=== PATIENT | male | born 1955 | race Two or more races ===

== ENCOUNTER 2020-09-01 16:33 | Inpatient (IN) | payer MEDICAID ==
[~2020-09-01] VITALS: Ht 182.9 cm; Wt 78.0 kg
[~2020-09-01 16:33] MED LIST: ACYC-114 PO; CARV3.122 PO; FURO20TA3 PO; LISI1TAB39 PO; METF500T17 PO
[2020-09-01] MEDS ORDERED: SODIUM CHLORIDE FLUSH 10ML SYR IVF ONE (17:00)
[2020-09-01 17:25] LABS: MEAN CORPUSCULAR HEMOGLOBIN 34.3 pg (27.5-34.5); MEAN CORPUSCULAR HGB CONC 33.5 g/dL (33.2-36.2); MEAN PLATELET VOLUME 9.7 fL (7.4-10.4); PLATELET COUNT 158 x10^3/uL (130-400); RED BLOOD COUNT 3.11 x10^6/uL (4.38-5.82); RED CELL DISTRIBUTION WIDTH 14.5 % (9.4-14.8)
[2020-09-01 17:27] LABS: MD YES
[2020-09-01 17:35] LABS: ALANINE AMINOTRANSFERASE 36 U/L (12-78); ALBUMIN 2.7 g/dL (3.4-5.0); ANION GAP 14 mmol/L (5-15); CALCIUM 8.6 mg/dL (8.5-10.1); CHLORIDE 94 mmol/L (98-107); CREATININE 8.69 mg/dL (0.7-1.3)
[2020-09-01 17:37] LABS: ALKALINE PHOSPHATASE 191 U/L (45-117); BILIRUBIN,TOTAL 0.7 mg/dL (0.2-1.0); TOTAL PROTEIN 7.4 g/dL (6.4-8.2)
--- NOTE | 2020-09-01 17:58 | NUR ---
FINANCIAL PROFESSIONAL: PT TO ROOM FROM LOBBY VIA W/C
[2020-09-01 18:02] LABS: BAND#(MANUAL) 3.13 x10^3/uL; BANDS%(MANUAL) 12 % (0-7); LYMPH#(MANUAL) 0.52 x10^3/uL (1-3.4); LYMPHS% (MANUAL) 2 % (22-44); MONOS#(MANUAL) 1.31 x10^3/uL (0.3-2.7); MONOS% (MANUAL) 5 % (2-9); SEG#(MANUAL) 21.14 x10^3/uL (1.8-6.8); SEGS% (MANUAL) 81 % (42-75)
[2020-09-01 18:03] LABS: <PLATELET ESTIMATE> ADEQUATE; <PLT MORPHOLOGY> NORMAL PLT MORPH
--- NOTE | 2020-09-01 18:12 | NUR ---
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 PT C/O WEAKNESS, CHILLS, AND NOT BEING ABLE TO EAT DUE TO NO APPETITE. PT HASN'T URINATE FOR 1 WEEK. PT DENIES VOMITING, SOB. PT HAS ABD PAIN ON LEFT ABD PAIN UPPER ND LOWER QUADRANT. PT RECEIVES DIALYSIS 3 DAYS A WEEK.
--- NOTE | 2020-09-01 18:24 | NUR ---
PT HAS DIALYSIS ACCESS PORT RIGHT CHEST.
[2020-09-01] MEDS ORDERED: SODIUM CHLORIDE 0.9% 1,000 ML IV ONE (18:30)
--- NOTE | 2020-09-01 18:51 | NUR ---
BEDSIDE REPORT RECEIVED FROM GHISLAINE MCKEON.
--- NOTE | 2020-09-01 19:02 | NUR ---
PT SITTING UPRIGHT ON GURNEY, FAMILY AT BEDSIDE. NAD, VSS. LAB AT BEDSIDE. PT DENIES ANY NEEDS AT THIS TIME. CALL LIGHT AND PERSONAL BELONGINGS WITHIN REACH.
[2020-09-01] MEDS ORDERED: OMNIPAQUE 350 MG/ML, 100ML BOTTLE ONE (19:55)
--- NOTE | 2020-09-01 20:10 | NUR ---
CAREER AGENT #[id number] PT INSTRUCTED ON PROCEDURE OF STRAIGHT CATH TO OBTAIN URINE SAMPLE. PT VERBALIZED UNDERSTANDING. STRAIGHT CATH PREFORMED USING STERILE TECHNIQUE, PT TOLERATED WELL. URINE SAMPLE WALKED TO LAB. PT SITTING UPRIGHT ON GUBRIANNA, TRINA, VSS. PT DENIES ANY ADDITIONAL NEEDS AT THIS TIME. CALL LIGHT AND PERSONAL BELONGINGS WITHIN REACH.
[2020-09-01 20:22] LABS: MICROSCOPIC AUTO
[2020-09-01] MEDS ORDERED: AZITHROMYCIN 500 MG TABLET PO ONE (20:30)
[2020-09-01] MEDS ORDERED: CEFTRIAXONE PMX 1GM/50ML 50 ML IV ONE (20:30)
[2020-09-01] MEDS ORDERED: CEFTRIAXONE PMX 1GM/50ML 50 ML ONE (20:56)
[2020-09-01] MEDS ORDERED: AZITHROMYCIN 250 MG TABLET ONE (20:56)
[2020-09-01] MEDS ORDERED: SODIUM CHLORIDE FLUSH 10ML SYR IVF PRN (21:00)
[2020-09-01] MEDS ORDERED: ACETAMINOPHEN 325 MG TABLET PO PRN (21:30)
[2020-09-01] MEDS ORDERED: MELATONIN 5 MG TABLET PO PRN (21:30)
[2020-09-01] MEDS ORDERED: BISACODYL 10 MG SUPP PR PRN (21:30)
[2020-09-01] MEDS ORDERED: ONDANSETRON ODT 4 MG PO PRN (21:30)
[2020-09-01] MEDS: CARVEDILOL 3.125 MG TABLET PO SCH (21:30)
[2020-09-01] MEDS ORDERED: POLYETHYLENE GLYCOL 17 GM PACKET PO PRN (21:30)
[2020-09-01] MEDS ORDERED: OXYcodone IR 5MG TABLET PO PRN (21:30)
[2020-09-01] MEDS ORDERED: HEPARIN 5,000 UNITS/ML, 1ML ONE (21:59)
[2020-09-01] MEDS ORDERED: CARVEDILOL 3.125 MG TABLET ONE (21:59)
[2020-09-01] MEDS: INSULIN LISPRO 100 UNITS/ML, PEN SQ-INSULIN SCH (22:45)
[2020-09-01] MEDS: ASCORBIC ACID 500 MG TABLET PO SCH (22:46)
[2020-09-01] MEDS: ACYCLOVIR 400 MG TABLET PO SCH (22:46)
[2020-09-01] MEDS: HEPARIN 5,000 UNITS/ML, 1ML SQ SCH (22:48)
--- NOTE | 2020-09-01 23:04 | NUR ---
PT MEDICATED PER EMAR. NAD, VSS. WILL CONTINUE TO MONITOR.
--- NOTE | 2020-09-01 23:24 | NUR ---
PT DAUGHTER WANTS TO BE NOTIFIED WHEN PT TRANSFERED UPSTAIRS. GREEK SPEAKING ONLY. JUAN DANIEL: [phone]
--- NOTE | 2020-09-01 23:25 | NUR ---
PT GETS DIALYSIS SUNDAY, SUNDAY, SUNDAY EVERY WEEK.
--- NOTE | 2020-09-01 23:26 | NUR ---
HOSPITAL BED ORDERED.
--- NOTE | 2020-09-02 00:03 | NUR ---
PT PLACED ON HOSPITAL BED. NAD, VSS. PT DENIES ANY NEEDS AT THIS TIME. CALL LIGHT AND PERSONAL BELOINGS WITHIN REACH.
--- NOTE | 2020-09-02 01:15 | NUR ---
PT SUPINE ON HOSPITAL BED SLEEPING. NAD, VSS. PT DENIES ANY NEEDS AT THIS TIME. CALL LIGHT AND PERSONAL BELOINGS WITHIN REACH.
--- NOTE | 2020-09-02 01:51 | NUR ---
PT UP TO BEDSIDE COMMODE FOR BM WITH THIS RN.
--- NOTE | 2020-09-02 02:30 | NUR ---
PT SUPINE ON HOSPITAL BED SLEEPING. NAD, VSS. PT DENIES ANY NEEDS AT THIS TIME. CALL LIGHT AND PERSONAL BELOINGS WITHIN REACH.
--- NOTE | 2020-09-02 03:00 | NUR ---
PT SUPINE ON HOSPITAL BED SLEEPING. NAD, VSS. PT DENIES ANY NEEDS AT THIS TIME. CALL LIGHT AND PERSONAL BELOINGS WITHIN REACH.
--- NOTE | 2020-09-02 04:12 | NUR ---
PT SUPINE ON HOSPITAL BED, SLEEPING. NAD, VSS. NO NEEDS AT THIS TIME. CALL LIGHT AND PERSONAL BELONGINGS WITHIN REACH.
--- NOTE | 2020-09-02 04:32 | NUR ---
CALL PLACED TO DR. SARAH VALLEJO PT BP 80'S OVER 50'S CONSISTENTLY. ODER TO HOLD BP MEDS IS SBP LESS THAN 100 AND VERBAL ORDER FOR 250 ML NS. "WE WILL CONTINUE TO MONITOR PT".
[2020-09-02] MEDS ORDERED: HEPARIN 5,000 UNITS/ML, 1ML ONE ×3 (04:51→20:49)
[2020-09-02] MEDS: HEPARIN 5,000 UNITS/ML, 1ML SQ SCH ×3 (04:54→21:34)
--- NOTE | 2020-09-02 04:54 | NUR ---
PT BP IMPROVED FOLLOWING 250 ML BOLUS, 93/58. NAD.
[2020-09-02] MEDS ORDERED: PEDS NS BOLUS IV.SOLN 20ML/KG IVBOLUS ONE (05:00)
[2020-09-02] MEDS ORDERED: SODIUM CHLORIDE 0.9%, 250ML IVBOLUS ONE ×2 (05:00)
--- NOTE | 2020-09-02 05:12 | NUR ---
PT SUPINE ON HOSPITAL BED, SLEEPING. NAD, BP CONTINUES TO IMPROVE. NO NEEDS AT THIS TIME. CALL LIGHT AND PERSONAL BELONGINGS WITHIN REACH. ISOLATION PRECAUTIONS IN PLACE.
[2020-09-02 05:30] LABS: ANION GAP 11 mmol/L (5-15); CALCIUM 7.9 mg/dL (8.5-10.1); CHLORIDE 101 mmol/L (98-107); CREATININE 8.87 mg/dL (0.7-1.3)
[2020-09-02 05:54] LABS: MEAN CORPUSCULAR HEMOGLOBIN 35.2 pg (27.5-34.5); MEAN CORPUSCULAR HGB CONC 34.4 g/dL (33.2-36.2); MEAN PLATELET VOLUME 9.8 fL (7.4-10.4); PLATELET COUNT 139 x10^3/uL (130-400); RED BLOOD COUNT 2.58 x10^6/uL (4.38-5.82); RED CELL DISTRIBUTION WIDTH 14.7 % (9.4-14.8)
--- NOTE | 2020-09-02 06:14 | NUR ---
CHIEF GREEN OFFICER #[id number] DISCUSSED PLAN OF CARE WITH PT. PT DENIES ANY COMPLAINTS AT THIS TIME, NO LIGHTHEADEDNESS, DIZZINESS. "I KIND OF JUST REALLY WANT TO SLEEP". PT UPRIGHT ON HOSPITAL BED. CALL LIGHT AND PERSONAL BELONGINGS WITHIN REACH. ISOLATION PRECAUTIONS IN PLACE.
[2020-09-02 06:24] LABS: MD YES
[2020-09-02 06:25] LABS: BAND#(MANUAL) 3.47 x10^3/uL; BANDS%(MANUAL) 13 % (0-7); LYMPH#(MANUAL) 1.34 x10^3/uL (1-3.4); LYMPHS% (MANUAL) 5 % (22-44); MONOS#(MANUAL) 2.14 x10^3/uL (0.3-2.7); MONOS% (MANUAL) 8 % (2-9); SEG#(MANUAL) 19.76 x10^3/uL (1.8-6.8); SEGS% (MANUAL) 74 % (42-75)
[2020-09-02 06:26] LABS: <PLATELET ESTIMATE> ADEQUATE; <PLT MORPHOLOGY> NORMAL PLT MORPH
--- NOTE | 2020-09-02 06:48 | NUR ---
REPORT GIVEN TO LISSETH MCKEON
--- NOTE | 2020-09-02 06:51 | NUR ---
PT REPORT FROM LINDA PENA. PT CARE TO BE ASSUMED. PER JEAN, PT'S DAUGHTER (JUAN DANIEL) REQUESTED NOTIFICATION OF WHEN PT IS MOVED TO [facility] FLOOR UNIT. DAUGHTER'S NUMBER IN CHART.
--- NOTE | 2020-09-02 07:05 | NUR ---
PT SLEEPING, RESP EVEN & UNLABORED, CARDIAC MONITORING CONTINUING: NSR. HUMALOG PEN ON ROOM COUNTER
--- NOTE | 2020-09-02 07:37 | NUR ---
FBS 108. PER INSTRUCTIONS: NO HUMALOG TO BE GIVEN.
[2020-09-02] MEDS: INSULIN LISPRO 100 UNITS/ML, PEN SQ-INSULIN SCH ×4 (07:40→21:00)
--- NOTE | 2020-09-02 07:59 | NUR ---
ORAL CARE PRODUCTS PROVIDED TO PT. PT AWAITING BREAKFAST TRAY
[2020-09-02] MEDS ORDERED: ASCORBIC ACID 500 MG TABLET ONE ×2 (08:01→16:53)
[2020-09-02] MEDS: ASCORBIC ACID 500 MG TABLET PO SCH ×2 (08:05→19:08)
[2020-09-02] MEDS ORDERED: SENNA/DOCUSATE TABLET ONE ×2 (08:58→09:19)
[2020-09-02] MEDS ORDERED: ZINC SULFATE 220 MG CAPSULE ONE (08:58)
[2020-09-02] MEDS ORDERED: LISINOPRIL 20 MG TABLET ONE (08:58)
[2020-09-02] MEDS ORDERED: CARVEDILOL 3.125 MG TABLET ONE ×2 (08:59→20:49)
[2020-09-02] MEDS ORDERED: FUROSEMIDE 20 MG TABLET ONE (08:59)
[2020-09-02] MEDS ORDERED: LISINOPRIL 20 MG TABLET PO SCH (09:00)
[2020-09-02] MEDS ORDERED: HYDROCHLOROTHIAZIDE 12.5 MG CAPSULE PO SCH (09:00)
[2020-09-02] MEDS ORDERED: ZINC SULFATE 220 MG CAPSULE PO SCH (09:00)
[2020-09-02] MEDS: FUROSEMIDE 20 MG TABLET PO SCH (09:08)
[2020-09-02] MEDS: ACYCLOVIR 400 MG TABLET PO SCH ×3 (09:11→20:53)
[2020-09-02] MEDS: CARVEDILOL 3.125 MG TABLET PO SCH ×2 (09:13→21:34)
[2020-09-02] MEDS: SENNA/DOCUSATE TABLET PO SCH (09:22)
--- NOTE | 2020-09-02 09:25 | NUR ---
PT MEDICATED PER EMAR
[2020-09-02] MEDS ORDERED: ARANESP 60 MCG/ML **ESRD SQ SCH (09:30)
--- NOTE | 2020-09-02 10:01 | NUR ---
CARROLL (DARBEPOETIN) ORDERED FROM PHARMACY
--- NOTE | 2020-09-02 10:30 | NUR ---
NS 250ML BOLUS COMPLETED.
--- NOTE | 2020-09-02 10:42 | NUR ---
SPOKE WITH DIALYSIS UNIT; OK TO GIVE CARROLL. PT SCHEDULED FOR DIALYSIS THIS AFTERNOON.
--- NOTE | 2020-09-02 10:57 | NUR ---
ARANESP GIVEN PER EMAR
--- NOTE | 2020-09-02 11:04 | NUR ---
JOEY, RADIOLOGY, CALLED RE: PENDING DIALYSIS CATH REMOVAL ORDER. PT TO BE NPO EFFECTIVE IMMEDIATELY. JOEY WILL CONSULT DOCTOR RE: PROCEDURE.
--- NOTE | 2020-09-02 11:18 | NUR ---
SPOKE W/ PT'S DAUGHTER AND GRANDSON IN WAITING ROOM. GRANDSON TRANSLATING; PT'S DAUGHTER GIBRALTARIAN SPEAKER. FAMILY UPDATED ON POC. INSTRUCTED GRANDSON TO CALL ED IF FAMILY OR PT NEEDS MORE INFORMATION. GRANDSON: MAURY KNAPP ( 05/05/2005)
[2020-09-02] MEDS ORDERED: VANCOMYCIN PER PHARMACY MC PRN (13:00)
--- NOTE | 2020-09-02 13:52 | NUR ---
FBS 129. PER INSTRUCTIONS, NO INSULIN FOR THIS READING
--- NOTE | 2020-09-02 13:56 | NUR ---
RESTING QUIETLY ON BED, WATCHING TV. INSULIN GIVEN PER EMAR. PT AWAITING HOSPITAL ROOM ASSIGNMENT AND DIALYSIS. MONITORING CONTINUING: NSR. CALL LIGHT W/IN REACH
--- NOTE | 2020-09-02 14:18 | NUR ---
CALL RECEIVED FROM REJI; DIALYSIS TO BE DONE IN ED.
--- NOTE | 2020-09-02 14:28 | NUR ---
FABRICE RECEIVED FROM PHARMACY. CALLED PHARMACY RE: INITIATION TIME VS PENDING DIALYSIS. VANCO MAY BE HUNG AFTER DIALYSIS.
[2020-09-02] MEDS ORDERED: VANCOMYCIN 1,500 MG in SODIUM CHLORIDE 0.9% 250 ML IV ONE (14:30)
[2020-09-02] MEDS ORDERED: PHARMACOKINETIC MONITORING MC PRN (14:30)
--- NOTE | 2020-09-02 14:49 | NUR ---
DIALYSIS TECHS AT BS
--- NOTE | 2020-09-02 15:12 | NUR ---
ZOVIRAX ORDERED FROM PHARMACY
--- NOTE | 2020-09-02 15:47 | NUR ---
DIALYSIS STILL AT BS
--- NOTE | 2020-09-02 16:07 | NUR ---
PT ENDORSED TO BREAK RN.
--- NOTE | 2020-09-02 16:44 | NUR ---
PT REPORT FROM LINDA COBURN. PER IRISH, IR WILL REMOVE DIALYSIS PORT TOMORROW. DIALYSIS STILL AT BS. PT CARE TO BE RESUMED.
--- NOTE | 2020-09-02 18:27 | NUR ---
DIALYSIS STILL AT BS
--- NOTE | 2020-09-02 18:43 | NUR ---
REPORT FROM LISSETH MCKEON, PT CARE TRANSFERRED AT THIS TIME.
--- NOTE | 2020-09-02 19:16 | NUR ---
PT DIALYSIS FINISHING UP AT THIS TIME. PHARMACY OKAY'D UMAIRO TO BE HUNG. PT MEDICATED PER NOV, MEDICATIONS LATE D/T DIALYSIS, PT NAD, RESTING ON HOSPITAL BED, APPEARS COMFORTABLE, NAD, VSS, DENIES ADDITIONAL QUESTIONS OR NEEDS AT THIS TIME. UMBRELLA SUPERVISOR SERVICES, LUCILA, USED TO REVIEW MEDICATIONS. WCTM. WAITING FOR ADMIT BED
[2020-09-02] MEDS ORDERED: AZITHROMYCIN 500 MG in SODIUM CHLORIDE 0.9% 250 ML IV SCH (20:00)
--- NOTE | 2020-09-02 20:27 | NUR ---
DIALYSIS REPORTED 1L PULLED OF PT, PT RESTING ON HOSPITAL BED, PROVIDED ONE MEAL PRIOR TO GOING NPO FOR DIALYSIS CATH REMOVAL TOMORROW. PT NAD, NO CHANGE IN CONDITION, WCTM.
[2020-09-02] MEDS ORDERED: CEFTRIAXONE PMX 1GM/50ML 50 ML ONE (20:49)
[2020-09-02] MEDS ORDERED: CEFTRIAXONE PMX 1GM/50ML 50 ML IV SCH (21:00)
--- NOTE | 2020-09-02 21:51 | NUR ---
PT MEDICATED PER NOV, , REPORT CALLED TO WENDIE MCKEON, PT TO BE TRANSFERRED MOMENTARILY. WCTM
--- NOTE | 2020-09-02 23:59 | NUR ---
pt nad, resting on hospital bed, appears comfortable, eyes closed, even and unlabored respirations. wctm. waiting for admit bed
--- NOTE | 2020-09-03 01:27 | NUR ---
PT RESTING ON HOSPITAL BED, NAD, APPEARS COMFORTABLE, LIGHTS OFF FOR COMFORT, NO CHANGE IN CONDITION, WCTM.
--- NOTE | 2020-09-03 02:39 | NUR ---
RN CALLED [facility], STATES ADMIT ORDER TO BE MED TELE D/T NEG COVID TEST. PT NAD, RESTING ON HOSPITAL BED, NO CHANGE IN CONDITION, WCTM. WAITING FOR ADMIT BED.
--- NOTE | 2020-09-03 03:54 | NUR ---
REPORT CALLED TO LARRY MCKEON, PT CARE TO BE TRANSFERRED UPON ARRIVAL TO THE FLOOR, NAD, NO CHANGE IN CONDITION, WCTM.
[2020-09-03 04:13] VITALS: BP 109/68
[2020-09-03] MEDS: HEPARIN 5,000 UNITS/ML, 1ML SQ SCH ×3 (04:46→20:58)
[2020-09-03 06:52] VITALS: BP 95/62
[2020-09-03] MEDS: INSULIN LISPRO 100 UNITS/ML, PEN SQ-INSULIN SCH ×4 (07:00→20:59)
[2020-09-03 07:34] LABS: ALBUMIN 2.2 g/dL (3.4-5.0); ANION GAP 12 mmol/L (5-15); CALCIUM 7.9 mg/dL (8.5-10.1); CHLORIDE 104 mmol/L (98-107); CREATININE 6.06 mg/dL (0.7-1.3); MEAN CORPUSCULAR HEMOGLOBIN 35.4 pg (27.5-34.5); MEAN CORPUSCULAR HGB CONC 34.4 g/dL (33.2-36.2); MEAN PLATELET VOLUME 9.7 fL (7.4-10.4); PLATELET COUNT 151 x10^3/uL (130-400); RED BLOOD COUNT 2.62 x10^6/uL (4.38-5.82); RED CELL DISTRIBUTION WIDTH 14.4 % (9.4-14.8)
[2020-09-03 07:36] LABS: VANCOMYCIN,RANDOM 32.2 mcg/mL
[2020-09-03 07:58] LABS: MD YES
[2020-09-03 07:59] LABS: <PLATELET ESTIMATE> ADEQUATE; <RBC MORPHOLOGY> NORMAL; BAND#(MANUAL) 1.25 x10^3/uL; BANDS%(MANUAL) 7 % (0-7); EOS#(MANUAL) 0.18 x10^3/uL (0.0-0.4); EOS% (MANUAL) 1 % (1-7); LYMPH#(MANUAL) 0.89 x10^3/uL (1-3.4); LYMPHS% (MANUAL) 5 % (22-44); MONOS% (MANUAL) 9 % (2-9); SEG#(MANUAL) 13.88 x10^3/uL (1.8-6.8); SEGS% (MANUAL) 78 % (42-75)
[2020-09-03 08:00] LABS: LARGE PLATELETS 1+
[2020-09-03] MEDS ORDERED: LIDOCAINE 1%, 10ML ONE (08:02)
[2020-09-03] MEDS ORDERED: FENTANYL PF 100 MCG/2ML ONE ×2 (08:03)
[2020-09-03] MEDS ORDERED: NALOXONE 1 MG/ML, 2ML ONE (08:03)
[2020-09-03] MEDS ORDERED: MIDAZOLAM 1 MG/ML, 5ML ONE (08:03)
[2020-09-03] MEDS ORDERED: FLUMAZENIL 0.1 MG/1 ML, 5ML ONE (08:03)
[2020-09-03] MEDS: ACYCLOVIR 400 MG TABLET PO SCH ×3 (09:00→20:58)
[2020-09-03] MEDS ORDERED: PHARMACY MAY ADJ FOR RENAL FX MC PRN (09:30)
[2020-09-03] MEDS: PIPERACILLIN/TAZO/PMX 2.25GM 50 ML IV SCH ×2 (11:44→17:10)
[2020-09-03] MEDS: FUROSEMIDE 20 MG TABLET PO SCH (11:45)
[2020-09-03] MEDS: SENNA/DOCUSATE TABLET PO SCH (11:46)
[2020-09-03] MEDS: CARVEDILOL 3.125 MG TABLET PO SCH ×2 (11:51→20:58)
[2020-09-03 12:31] VITALS: BP 125/71
[2020-09-03 19:07] VITALS: BP 109/63
[2020-09-04 00:15] VITALS: BP 90/53
[2020-09-04] MEDS: PIPERACILLIN/TAZO/PMX 2.25GM 50 ML IV SCH ×2 (01:01→08:54)
[2020-09-04] MEDS: HEPARIN 5,000 UNITS/ML, 1ML SQ SCH ×3 (04:21→21:53)
[2020-09-04 05:43] LABS: MEAN CORPUSCULAR HEMOGLOBIN 35.3 pg (27.5-34.5); MEAN CORPUSCULAR HGB CONC 34.3 g/dL (33.2-36.2); MEAN PLATELET VOLUME 9.6 fL (7.4-10.4); PLATELET COUNT 138 x10^3/uL (130-400); RED BLOOD COUNT 2.59 x10^6/uL (4.38-5.82); RED CELL DISTRIBUTION WIDTH 14.6 % (9.4-14.8)
[2020-09-04 05:47] LABS: ALBUMIN 2.2 g/dL (3.4-5.0); CALCIUM 7.5 mg/dL (8.5-10.1); CREATININE 7.73 mg/dL (0.7-1.3)
[2020-09-04 06:02] LABS: ANION GAP 10 mmol/L (5-15); CHLORIDE 104 mmol/L (98-107)
[2020-09-04 06:55] LABS: MD YES
[2020-09-04 06:57] LABS: BAND#(MANUAL) 0.33 x10^3/uL; BANDS%(MANUAL) 3 % (0-7); EOS#(MANUAL) 0.33 x10^3/uL (0.0-0.4); EOS% (MANUAL) 3 % (1-7); LYMPHS% (MANUAL) 22 % (22-44); MONOS#(MANUAL) 0.76 x10^3/uL (0.3-2.7); MONOS% (MANUAL) 7 % (2-9); SEG#(MANUAL) 7.09 x10^3/uL (1.8-6.8); SEGS% (MANUAL) 65 % (42-75)
[2020-09-04 06:58] LABS: <PLATELET ESTIMATE> ADEQUATE; <PLT MORPHOLOGY> NORMAL PLT MORPH
[2020-09-04] MEDS: INSULIN LISPRO 100 UNITS/ML, PEN SQ-INSULIN SCH ×4 (08:53→21:54)
[2020-09-04] MEDS: FUROSEMIDE 20 MG TABLET PO SCH (08:53)
[2020-09-04] MEDS: ACYCLOVIR 400 MG TABLET PO SCH ×3 (08:54→21:53)
[2020-09-04] MEDS: CARVEDILOL 3.125 MG TABLET PO SCH ×2 (08:54→21:52)
[2020-09-04] MEDS: SENNA/DOCUSATE TABLET PO SCH (08:54)
[2020-09-04 08:59] VITALS: BP 176/90
[2020-09-04] MEDS ORDERED: ENALAPRILAT 1.25 MG/ML, 1ML IV PRN (09:30)
[2020-09-04] MEDS ORDERED: LABETALOL 5MG/ML, 20ML IVPush PRN (09:30)
[2020-09-04 09:34] VITALS: BP 166/84
[2020-09-04 10:05] VITALS: BP 126/71
[2020-09-04 15:32] VITALS: BP 98/59
[2020-09-04] MEDS: CEFTRIAXONE PMX 2GM/50ML 50 ML IVPB SCH (15:36)
[2020-09-04 18:59] VITALS: BP 129/74
[2020-09-05 02:16] VITALS: BP 114/68
[2020-09-05 05:28] LABS: BASOPHILS % (AUTO) 0 % (0-1); EOSINOPHILS % (AUTO) 4 % (1-7); LYMPHOCYTES % (AUTO) 14 % (22-44); MEAN CORPUSCULAR HEMOGLOBIN 35.7 pg (27.5-34.5); MEAN CORPUSCULAR HGB CONC 34.2 g/dL (33.2-36.2); MEAN PLATELET VOLUME 9.2 fL (7.4-10.4); MONOCYTES % (AUTO) 8 % (2-9); NEUTROPHILS % (AUTO) 73 % (42-75); PLATELET COUNT 139 x10^3/uL (130-400); RED BLOOD COUNT 2.85 x10^6/uL (4.38-5.82); RED CELL DISTRIBUTION WIDTH 14.6 % (9.4-14.8)
[2020-09-05] MEDS: HEPARIN 5,000 UNITS/ML, 1ML SQ SCH ×3 (05:33→21:38)
[2020-09-05 05:34] LABS: ALANINE AMINOTRANSFERASE 40 U/L (12-78); ALBUMIN 2.2 g/dL (3.4-5.0); ANION GAP 14 mmol/L (5-15); CALCIUM 7.8 mg/dL (8.5-10.1); CHLORIDE 104 mmol/L (98-107); CREATININE 9.38 mg/dL (0.7-1.3)
[2020-09-05 05:37] LABS: ALKALINE PHOSPHATASE 275 U/L (45-117); BILIRUBIN,TOTAL 0.5 mg/dL (0.2-1.0); TOTAL PROTEIN 6.8 g/dL (6.4-8.2)
[2020-09-05 06:18] LABS: MD SCAN
[2020-09-05 06:45] VITALS: BP 133/82
[2020-09-05] MEDS: INSULIN LISPRO 100 UNITS/ML, PEN SQ-INSULIN SCH ×4 (07:00→21:38)
[2020-09-05] MEDS: FUROSEMIDE 20 MG TABLET PO SCH (08:52)
[2020-09-05] MEDS: SENNA/DOCUSATE TABLET PO SCH (08:52)
[2020-09-05] MEDS: CARVEDILOL 3.125 MG TABLET PO SCH ×2 (08:52→21:38)
[2020-09-05] MEDS: ACYCLOVIR 400 MG TABLET PO SCH ×3 (08:52→21:38)
[2020-09-05 12:35] VITALS: BP 145/77
[2020-09-05] MEDS: CEFTRIAXONE PMX 2GM/50ML 50 ML IVPB SCH (13:57)
[2020-09-05 19:46] VITALS: BP 156/81
[2020-09-06 01:23] VITALS: BP 108/65
[2020-09-06] MEDS: HEPARIN 5,000 UNITS/ML, 1ML SQ SCH ×2 (05:00→13:46)
[2020-09-06 05:31] LABS: MEAN CORPUSCULAR HEMOGLOBIN 35.4 pg (27.5-34.5); MEAN CORPUSCULAR HGB CONC 34.3 g/dL (33.2-36.2); MEAN PLATELET VOLUME 9.4 fL (7.4-10.4); PLATELET COUNT 146 x10^3/uL (130-400); RED BLOOD COUNT 2.52 x10^6/uL (4.38-5.82); RED CELL DISTRIBUTION WIDTH 14.6 % (9.4-14.8)
[2020-09-06 05:41] LABS: CHLORIDE 102 mmol/L (98-107)
[2020-09-06 05:47] LABS: ANION GAP 15 mmol/L (5-15); CALCIUM 7.2 mg/dL (8.5-10.1)
[2020-09-06 06:27] LABS: MD YES
[2020-09-06 06:29] LABS: <PLATELET ESTIMATE> ADEQUATE; <PLT MORPHOLOGY> NORMAL PLT MORPH; BAND#(MANUAL) 0.38 x10^3/uL; BANDS%(MANUAL) 4 % (0-7); EOS#(MANUAL) 0.38 x10^3/uL (0.0-0.4); EOS% (MANUAL) 4 % (1-7); LYMPH#(MANUAL) 1.63 x10^3/uL (1-3.4); LYMPHS% (MANUAL) 17 % (22-44); MONOS#(MANUAL) 0.48 x10^3/uL (0.3-2.7); MONOS% (MANUAL) 5 % (2-9); POLYCHROMASIA 1+; SEG#(MANUAL) 6.72 x10^3/uL (1.8-6.8); SEGS% (MANUAL) 70 % (42-75)
[2020-09-06] MEDS: INSULIN LISPRO 100 UNITS/ML, PEN SQ-INSULIN SCH ×2 (07:00→11:18)
[2020-09-06 07:12] VITALS: BP 147/82
[2020-09-06] MEDS: SENNA/DOCUSATE TABLET PO SCH (08:46)
[2020-09-06] MEDS: CARVEDILOL 3.125 MG TABLET PO SCH (08:46)
[2020-09-06] MEDS: ACYCLOVIR 400 MG TABLET PO SCH (08:46)
[2020-09-06] MEDS: FUROSEMIDE 20 MG TABLET PO SCH (08:47)
[2020-09-06] MEDS ORDERED: LIDOCAINE 1%, 20ML ONE (09:16)
[2020-09-06] MEDS ORDERED: MIDAZOLAM 1 MG/ML, 5ML ONE (09:37)
[2020-09-06] MEDS ORDERED: FENTANYL PF 100 MCG/2ML ONE ×2 (09:37)
[2020-09-06] MEDS ORDERED: FLUMAZENIL 0.1 MG/1 ML, 5ML ONE (09:37)
[2020-09-06] MEDS ORDERED: NALOXONE 1 MG/ML, 2ML ONE (09:37)
[2020-09-06] MEDS ORDERED: VISIPAQUE 270 MG/ML, 50ML BOTTLE ONE (10:42)
[2020-09-06] MEDS: CEFTRIAXONE PMX 2GM/50ML 50 ML IVPB SCH (11:50)
[2020-09-06] MEDS ORDERED: CEFA2PIG IV (12:02)
[2020-09-06 12:53] VITALS: BP 163/84
== END 2020-09-06 14:50 | disposition home or self-care (01) | DRG 721 ==
LOC: ED 20:42 → EDIP 21:16 → 5SO 09-03 04:07 → DCLOUNGE 09-06 14:18
PROVIDERS: ADMIT Internal Medicine; ATTEND Internal Medicine
PROC: 0T9B70Z Drainage of Bladder with Drainage Device, Via Natural or Artificial Opening (ICD-10-PCS; principal; 2020-09-01)
PROC: 5A1D70Z Performance of Urinary Filtration, Intermittent, Less than 6 Hours Per Day (ICD-10-PCS; 2020-09-02)
PROC: 0JPV3XZ Removal of Tunneled Vascular Access Device from Upper Extremity Subcutaneous Tissue and Fascia, Percutaneous Approach (ICD-10-PCS; 2020-09-03)
PROC: 02PY33Z Removal of Infusion Device from Great Vessel, Percutaneous Approach (ICD-10-PCS; 2020-09-03)
PROC: 0JH63XZ Insertion of Tunneled Vascular Access Device into Chest Subcutaneous Tissue and Fascia, Percutaneous Approach (ICD-10-PCS; 2020-09-06)
PROC: 02HV33Z Insertion of Infusion Device into Superior Vena Cava, Percutaneous Approach (ICD-10-PCS; 2020-09-06)
PROC: B5181ZA Fluoroscopy of Superior Vena Cava using Low Osmolar Contrast, Guidance (ICD-10-PCS; 2020-09-06)
PROC: B548ZZA Ultrasonography of Superior Vena Cava, Guidance (ICD-10-PCS; 2020-09-06)
DX: T80.211A Bloodstream infection due to central venous catheter, initial encounter (principal); A41.59 Other Gram-negative sepsis; Z20.828 Contact with and (suspected) exposure to other viral communicable diseases; N18.6 End stage renal disease; E78.00 Pure hypercholesterolemia, unspecified; E78.5 Hyperlipidemia, unspecified; E11.22 Type 2 diabetes mellitus with diabetic chronic kidney disease; J18.9 Pneumonia, unspecified organism; B96.1 Klebsiella pneumoniae [K. pneumoniae] as the cause of diseases classified elsewhere; D53.9 Nutritional anemia, unspecified; E87.6 Hypokalemia; E88.09 Other disorders of plasma-protein metabolism, not elsewhere classified; I13.2 Hypertensive heart and chronic kidney disease with heart failure and with stage 5 chronic kidney disease, or end stage renal disease; I50.22 Chronic systolic (congestive) heart failure; E87.1 Hypo-osmolality and hyponatremia; D63.1 Anemia in chronic kidney disease; Y83.8 Other surgical procedures as the cause of abnormal reaction of the patient, or of later complication, without mention of misadventure at the time of the procedure; Z79.4 Long term (current) use of insulin; Z99.2 Dependence on renal dialysis; Z83.3 Family history of diabetes mellitus; Z87.891 Personal history of nicotine dependence; Y92.89 Other specified places as the place of occurrence of the external cause; Z79.899 Other long term (current) drug therapy
CPT/HCPCS: J3490 ×2; 36415; 36558; 36589; 71045; 74177; 76700; 76937; 77001; 80048; 80053; 80069; 80202; 81001; 82607; 82962; 83036; 83605; 83690; 84100; 84145; 84439; 84443; 85025; 87040; 87070; 87075; 87077; 87102; 87186; 87205; 90935; 96365; 96366; 99156; 99157; 99285; G0378; J0456; J0696; J0882; J1644; J2250; J2543; J3010; J3370; J7030; Q9966; Q9967; C1750; C1769; J1642; J1815; J2310; J7050; U0003

== ENCOUNTER 2020-09-14 17:12 | Inpatient (IN) | payer MEDICAID ==
[~2020-09-14] VITALS: Ht 182.9 cm; Wt 74.0 kg
[~2020-09-14 17:12] MED LIST changes: +CEFA2PIG IV
--- NOTE | 2020-09-14 17:33 | NUR ---
DAUGHTER JUAN DANIEL VASQUEZ [phone].
--- NOTE | 2020-09-14 18:00 | NUR ---
LATE ENTRY: WEAKNESS/COUGH/SOB X1 WEEK, GLF THIS AM, DENIES LOC. STATES ABDOMINAL PAIN. DENIES FEVER. PER SON "SOMEONE AT DIALYSIS TOLD US TO BRING HIM HERE, HES BEEN COUGHING A LOT, HE CAN'T STAND UP". PT REC'D DIALYSIS TODAY AT 1600. NORMAL DIALYSIS DAYS ARE T/TH/SAT. A P SUPERVISOR LINE USED FOR ASSESSMENT. A P SUPERVISOR ID#[id number]. EKG COMPLETE. MONITORS CONNECTED. WARM BLANKETS PROVIDED
[2020-09-14 18:07] LABS: BASOPHILS % (AUTO) 1 % (0-1); EOSINOPHILS % (AUTO) 0 % (1-7); LYMPHOCYTES % (AUTO) 20 % (22-44); MEAN CORPUSCULAR HEMOGLOBIN 34.3 pg (27.5-34.5); MEAN CORPUSCULAR HGB CONC 33.7 g/dL (33.2-36.2); MEAN PLATELET VOLUME 8.7 fL (7.4-10.4); MONOCYTES % (AUTO) 14 % (2-9); NEUTROPHILS % (AUTO) 66 % (42-75); PLATELET COUNT 247 x10^3/uL (130-400); RED BLOOD COUNT 2.63 x10^6/uL (4.38-5.82); RED CELL DISTRIBUTION WIDTH 15.4 % (9.4-14.8)
[2020-09-14 18:09] LABS: MD NO
[2020-09-14 18:17] LABS: ALANINE AMINOTRANSFERASE 11 U/L (12-78); ALBUMIN 2.5 g/dL (3.4-5.0); ANION GAP 11 mmol/L (5-15); CALCIUM 8.7 mg/dL (8.5-10.1); CHLORIDE 99 mmol/L (98-107); CREATININE 6.96 mg/dL (0.7-1.3)
[2020-09-14 18:19] LABS: ALKALINE PHOSPHATASE 140 U/L (45-117); BILIRUBIN,TOTAL 0.3 mg/dL (0.2-1.0); TOTAL PROTEIN 7.8 g/dL (6.4-8.2)
[2020-09-14] MEDS ORDERED: SODIUM CHLORIDE 0.9% 1,000ML IVBOLUS ONE (18:30)
[2020-09-14] MEDS ORDERED: ACETAMINOPHEN 500 MG TABLET PO ONE (18:30)
[2020-09-14] MEDS ORDERED: DOXYCYCLINE 100 MG in DEXTROSE 5% 250 ML IV ONE (18:30)
[2020-09-14] MEDS ORDERED: CEFTRIAXONE PMX 1GM/50ML 50 ML IV ONE (18:30)
[2020-09-14] MEDS ORDERED: CEFTRIAXONE PMX 1GM/50ML 0 ML ONE (18:59)
[2020-09-14] MEDS ORDERED: ACETAMINOPHEN 500 MG TABLET ONE ×2 (18:59→19:03)
[2020-09-14] MEDS ORDERED: CEFTRIAXONE PMX 1GM/50ML 50 ML ONE (19:03)
--- NOTE | 2020-09-14 20:42 | NUR ---
PT RESTING ON [employer]. VSS. NAD. STATES NO PAIN. STATES NO ADDITIONAL NEEDS AT THIS TIME
[2020-09-14] MEDS ORDERED: SODIUM CHLORIDE FLUSH 10ML SYR IVF PRN (21:00)
--- NOTE | 2020-09-14 21:18 | NUR ---
PT RESTING ON [employer] WATER PROVIDED. VSS. NAD. STATES NO ADDITIONAL NEEDS AT THIS TIME
[2020-09-14] MEDS ORDERED: LABETALOL 5MG/ML, 20ML IVPush PRN (22:00)
[2020-09-14] MEDS ORDERED: PHARMACY MAY ADJ FOR RENAL FX MC PRN (22:00)
[2020-09-14] MEDS ORDERED: CEFTRIAXONE PMX 1GM/50ML 50 ML IV SCH (22:00)
[2020-09-14] MEDS ORDERED: PROMETHAZINE 25 MG/ML, 1ML IM PRN (22:00)
--- NOTE | 2020-09-14 22:13 | NUR ---
PT RESTING IN [facility]. NAD. VSS.
[2020-09-14] MEDS ORDERED: HEPARIN 5,000 UNITS/ML, 1ML ONE (22:55)
[2020-09-14] MEDS: HEPARIN 5,000 UNITS/ML, 1ML SQ SCH (23:00)
[2020-09-14 23:44] VITALS: BP 136/77
[2020-09-15 01:34] VITALS: BP 120/82
[2020-09-15 05:58] LABS: ANION GAP 9 mmol/L (5-15); CHLORIDE 100 mmol/L (98-107)
[2020-09-15 05:59] LABS: CALCIUM 7.8 mg/dL (8.5-10.1); CREATININE 8.23 mg/dL (0.7-1.3)
[2020-09-15 06:00] LABS: BASOPHILS % (AUTO) 1 % (0-1); EOSINOPHILS % (AUTO) 0 % (1-7); LYMPHOCYTES % (AUTO) 41 % (22-44); MEAN CORPUSCULAR HEMOGLOBIN 35.1 pg (27.5-34.5); MEAN PLATELET VOLUME 8.9 fL (7.4-10.4); MONOCYTES % (AUTO) 14 % (2-9); NEUTROPHILS % (AUTO) 44 % (42-75); PLATELET COUNT 214 x10^3/uL (130-400); RED BLOOD COUNT 2.49 x10^6/uL (4.38-5.82); RED CELL DISTRIBUTION WIDTH 15.2 % (9.4-14.8)
[2020-09-15 06:09] LABS: MD NO
[2020-09-15] MEDS: HEPARIN 5,000 UNITS/ML, 1ML SQ SCH ×3 (06:12→21:48)
[2020-09-15 06:47] VITALS: BP 160/80
[2020-09-15] MEDS: ACETAMINOPHEN 325 MG TABLET PO PRN ×3 (07:10→20:28)
[2020-09-15] MEDS: CARVEDILOL 3.125 MG TABLET PO SCH ×2 (08:44→20:28)
[2020-09-15] MEDS ORDERED: DOXYCYCLINE 100MG TABLET PO SCH (09:00)
[2020-09-15 12:01] VITALS: BP 137/76
[2020-09-15] MEDS: CEFTRIAXONE PMX 2GM/50ML 50 ML IVPB SCH (15:53)
[2020-09-15] MEDS ORDERED: VANCOMYCIN PER PHARMACY MC PRN (16:00)
[2020-09-15] MEDS ORDERED: VANCOMYCIN 1,600 MG in SODIUM CHLORIDE 0.9% 250 ML IV ONE (16:30)
[2020-09-15] MEDS ORDERED: PHARMACOKINETIC MONITORING MC PRN (16:30)
[2020-09-15] MEDS ORDERED: PHARMACOKINETIC CONSULTATION MC ONE (16:30)
[2020-09-15 20:18] VITALS: BP 148/85
[2020-09-15] MEDS: BENZONATATE 100 MG CAPSULE PO PRN (22:52)
[2020-09-16 00:27] VITALS: BP 143/75
[2020-09-16] MEDS: ACETAMINOPHEN 325 MG TABLET PO PRN ×4 (02:07→15:49)
[2020-09-16 05:52] LABS: VANCOMYCIN,RANDOM 32.2 mcg/mL
[2020-09-16] MEDS: BENZONATATE 100 MG CAPSULE PO PRN (06:08)
[2020-09-16] MEDS: HEPARIN 5,000 UNITS/ML, 1ML SQ SCH ×3 (06:09→21:03)
[2020-09-16] MEDS ORDERED: DARBEPOETIN 100 MCG/ML SQ SCH (08:00)
[2020-09-16 08:17] LABS: CLOSTRIDIUM DIFFICILE ANTIGEN NEGATIVE; CLOSTRIDIUM DIFFICILE TOXIN NEGATIVE (Negative)
[2020-09-16 12:45] VITALS: BP 135/60
[2020-09-16] MEDS: CARVEDILOL 3.125 MG TABLET PO SCH ×2 (13:53→21:03)
[2020-09-16] MEDS: CEFTRIAXONE PMX 2GM/50ML 50 ML IVPB SCH (15:00)
[2020-09-16 20:07] VITALS: BP 109/66
[2020-09-17 01:29] VITALS: BP 123/65
[2020-09-17] MEDS: HEPARIN 5,000 UNITS/ML, 1ML SQ SCH ×3 (06:08→21:19)
[2020-09-17 06:53] VITALS: BP 128/72
[2020-09-17 10:40] VITALS: BP 106/64
[2020-09-17] MEDS: MULTIVITS,STRESS FORMULA 1 TABLET PO SCH (10:43)
[2020-09-17] MEDS: ZINC SULFATE 220 MG CAPSULE PO SCH (10:43)
[2020-09-17] MEDS: CHOLECALCIFEROL 5,000u TAB PO SCH (10:43)
[2020-09-17] MEDS: FLUTICASONE/VILANTEROL 100-25MCG/INH INH SCH (10:43)
[2020-09-17] MEDS: CARVEDILOL 3.125 MG TABLET PO SCH ×2 (10:43→21:19)
[2020-09-17] MEDS: ASCORBIC ACID 500 MG TABLET PO SCH ×2 (10:44→17:07)
[2020-09-17] MEDS: methylPREDNISolone SOD SUCC 125 MG/2 ML IV SCH ×2 (10:44→21:18)
[2020-09-17 12:08] VITALS: BP 105/63
[2020-09-17] MEDS: ACETAMINOPHEN 325 MG TABLET PO PRN (13:52)
[2020-09-17] MEDS: CEFTRIAXONE PMX 2GM/50ML 50 ML IVPB SCH (15:35)
[2020-09-17] MEDS ORDERED: INSULIN REGULAR 100 UNITS/ML, 3ML VIAL SQ-INSULIN ONE (18:30)
[2020-09-17 18:52] VITALS: BP 117/79
[2020-09-17] MEDS: INSULIN LISPRO 100 UNITS/ML, PEN SQ-INSULIN SCH (23:58)
[2020-09-18 01:28] VITALS: BP 132/86
[2020-09-18 05:00] LABS: ANION GAP 15 mmol/L (5-15); CALCIUM 7.2 mg/dL (8.5-10.1); CHLORIDE 96 mmol/L (98-107)
[2020-09-18 05:02] LABS: VANCOMYCIN,RANDOM 22.2 mcg/mL
[2020-09-18] MEDS: HEPARIN 5,000 UNITS/ML, 1ML SQ SCH ×3 (06:01→21:23)
[2020-09-18] MEDS: INSULIN LISPRO 100 UNITS/ML, PEN SQ-INSULIN SCH ×4 (06:02→21:25)
[2020-09-18 07:55] VITALS: BP 102/64
[2020-09-18] MEDS: ASCORBIC ACID 500 MG TABLET PO SCH ×2 (07:58→18:27)
[2020-09-18] MEDS: MULTIVITS,STRESS FORMULA 1 TABLET PO SCH (07:58)
[2020-09-18] MEDS: CHOLECALCIFEROL 5,000u TAB PO SCH (07:58)
[2020-09-18] MEDS: FLUTICASONE/VILANTEROL 100-25MCG/INH INH SCH (07:59)
[2020-09-18] MEDS: methylPREDNISolone SOD SUCC 125 MG/2 ML IV SCH (07:59)
[2020-09-18] MEDS: ZINC SULFATE 220 MG CAPSULE PO SCH (07:59)
[2020-09-18] MEDS: CARVEDILOL 3.125 MG TABLET PO SCH ×2 (08:03→21:00)
[2020-09-18] MEDS: INSULIN GLARGINE 100 UNITS/ML, PEN SQ-INSULIN SCH ×2 (10:26→21:24)
[2020-09-18 13:58] VITALS: BP 113/70
[2020-09-18] MEDS: CEFTRIAXONE PMX 2GM/50ML 50 ML IVPB SCH (15:20)
[2020-09-18] MEDS ORDERED: VANCOMYCIN 1,600 MG in SODIUM CHLORIDE 0.9% 250 ML IV ONE (19:00)
[2020-09-18 20:00] VITALS: BP 102/68
[2020-09-18] MEDS ORDERED: INSULIN LISPRO 100 UNITS/ML, PEN SQ-INSULIN SCH (23:00)
[2020-09-19] MEDS: methylPREDNISolone SOD SUCC 125 MG/2 ML IV SCH ×3 (00:55→21:54)
[2020-09-19 01:19] VITALS: BP 123/82
[2020-09-19] MEDS: BENZONATATE 100 MG CAPSULE PO PRN ×2 (04:09→21:54)
[2020-09-19] MEDS: HEPARIN 5,000 UNITS/ML, 1ML SQ SCH ×3 (06:01→21:56)
[2020-09-19 07:52] VITALS: BP 116/71
[2020-09-19] MEDS: INSULIN LISPRO 100 UNITS/ML, PEN SQ-INSULIN SCH ×4 (07:59→21:55)
[2020-09-19] MEDS: ZINC SULFATE 220 MG CAPSULE PO SCH (09:02)
[2020-09-19] MEDS: ASCORBIC ACID 500 MG TABLET PO SCH ×2 (09:02→15:56)
[2020-09-19] MEDS: MULTIVITS,STRESS FORMULA 1 TABLET PO SCH (09:02)
[2020-09-19] MEDS: CHOLECALCIFEROL 5,000u TAB PO SCH (09:03)
[2020-09-19] MEDS: INSULIN GLARGINE 100 UNITS/ML, PEN SQ-INSULIN SCH ×2 (09:03→21:55)
[2020-09-19] MEDS: CARVEDILOL 3.125 MG TABLET PO SCH ×2 (09:03→21:54)
[2020-09-19] MEDS: FLUTICASONE/VILANTEROL 100-25MCG/INH INH SCH (09:04)
[2020-09-19 13:56] VITALS: BP 108/68
[2020-09-19] MEDS: CEFTRIAXONE PMX 2GM/50ML 50 ML IVPB SCH (14:34)
[2020-09-19 19:37] VITALS: BP 123/75
[2020-09-19 21:50] VITALS: BP 125/74
[2020-09-19] MEDS: ACETAMINOPHEN 325 MG TABLET PO PRN (21:54)
[2020-09-20 00:13] VITALS: BP 124/78
[2020-09-20 00:32] VITALS: BP 103/62
[2020-09-20] MEDS: ACETAMINOPHEN 325 MG TABLET PO PRN ×2 (05:20→22:11)
[2020-09-20] MEDS: BENZONATATE 100 MG CAPSULE PO PRN ×2 (05:20→22:12)
[2020-09-20] MEDS: HEPARIN 5,000 UNITS/ML, 1ML SQ SCH ×3 (05:21→22:12)
[2020-09-20 07:47] VITALS: BP 158/86
[2020-09-20] MEDS: INSULIN GLARGINE 100 UNITS/ML, PEN SQ-INSULIN SCH ×2 (09:05→22:13)
[2020-09-20] MEDS: INSULIN LISPRO 100 UNITS/ML, PEN SQ-INSULIN SCH ×4 (09:05→21:01)
[2020-09-20] MEDS: methylPREDNISolone SOD SUCC 125 MG/2 ML IV SCH ×2 (09:06→22:12)
[2020-09-20] MEDS: MULTIVITS,STRESS FORMULA 1 TABLET PO SCH (09:06)
[2020-09-20] MEDS: FLUTICASONE/VILANTEROL 100-25MCG/INH INH SCH (09:06)
[2020-09-20] MEDS: ASCORBIC ACID 500 MG TABLET PO SCH ×2 (09:06→15:47)
[2020-09-20] MEDS: CHOLECALCIFEROL 5,000u TAB PO SCH (09:06)
[2020-09-20] MEDS: CARVEDILOL 3.125 MG TABLET PO SCH ×2 (09:07→22:12)
[2020-09-20] MEDS: ZINC SULFATE 220 MG CAPSULE PO SCH (09:07)
[2020-09-20] MEDS: CEFTRIAXONE PMX 2GM/50ML 50 ML IVPB SCH (13:51)
[2020-09-20 14:04] VITALS: BP 132/82
[2020-09-20 20:00] VITALS: BP 156/94
[2020-09-20 21:50] VITALS: BP 148/82
[2020-09-21 01:11] VITALS: BP 163/93
[2020-09-21] MEDS: LACTOBACILLUS 1GM/ PACKET PO SCH ×3 (05:31→16:00)
[2020-09-21] MEDS: ACETAMINOPHEN 325 MG TABLET PO PRN (05:32)
[2020-09-21] MEDS: BENZONATATE 100 MG CAPSULE PO PRN (05:32)
[2020-09-21] MEDS: HEPARIN 5,000 UNITS/ML, 1ML SQ SCH ×3 (05:32→21:49)
[2020-09-21 07:01] VITALS: BP 155/89
[2020-09-21] MEDS: CHOLECALCIFEROL 5,000u TAB PO SCH (08:15)
[2020-09-21] MEDS: ASCORBIC ACID 500 MG TABLET PO SCH ×2 (08:16→17:25)
[2020-09-21] MEDS: MULTIVITS,STRESS FORMULA 1 TABLET PO SCH (08:17)
[2020-09-21] MEDS: FLUTICASONE/VILANTEROL 100-25MCG/INH INH SCH (08:17)
[2020-09-21] MEDS: CARVEDILOL 3.125 MG TABLET PO SCH ×2 (08:17→21:50)
[2020-09-21] MEDS: methylPREDNISolone SOD SUCC 125 MG/2 ML IV SCH ×2 (08:17→21:48)
[2020-09-21] MEDS: ZINC SULFATE 220 MG CAPSULE PO SCH (08:18)
[2020-09-21] MEDS: INSULIN LISPRO 100 UNITS/ML, PEN SQ-INSULIN SCH ×4 (08:18→21:49)
[2020-09-21] MEDS: INSULIN GLARGINE 100 UNITS/ML, PEN SQ-INSULIN SCH ×2 (08:19→21:49)
[2020-09-21 12:01] VITALS: BP 117/77
[2020-09-21] MEDS: CEFTRIAXONE PMX 2GM/50ML 50 ML IVPB SCH (17:25)
[2020-09-21] MEDS ORDERED: LACTULOSE 20 GM/30 ML UDC PO PRN (18:00)
[2020-09-21 21:20] VITALS: BP 142/91
[2020-09-22 00:16] VITALS: BP 128/83
[2020-09-22] MEDS: HEPARIN 5,000 UNITS/ML, 1ML SQ SCH ×3 (05:10→21:08)
[2020-09-22] MEDS: INSULIN LISPRO 100 UNITS/ML, PEN SQ-INSULIN SCH ×4 (07:50→21:08)
[2020-09-22 08:44] VITALS: BP 129/88
[2020-09-22] MEDS: ASCORBIC ACID 500 MG TABLET PO SCH ×2 (10:16→16:38)
[2020-09-22] MEDS: CHOLECALCIFEROL 5,000u TAB PO SCH (10:16)
[2020-09-22] MEDS: MULTIVITS,STRESS FORMULA 1 TABLET PO SCH (10:16)
[2020-09-22] MEDS: ZINC SULFATE 220 MG CAPSULE PO SCH (10:16)
[2020-09-22] MEDS: CARVEDILOL 3.125 MG TABLET PO SCH ×2 (10:16→21:08)
[2020-09-22] MEDS: DEXAMETHASONE 4 MG TABLET PO SCH (10:16)
[2020-09-22] MEDS: FLUTICASONE/VILANTEROL 100-25MCG/INH INH SCH (10:17)
[2020-09-22] MEDS: INSULIN GLARGINE 100 UNITS/ML, PEN SQ-INSULIN SCH ×2 (12:20→21:09)
[2020-09-22 13:03] VITALS: BP 116/78
[2020-09-22] MEDS: CEFTRIAXONE PMX 2GM/50ML 50 ML IVPB SCH (15:19)
[2020-09-22 21:24] VITALS: BP 152/87
[2020-09-23 00:24] VITALS: BP 127/78
[2020-09-23] MEDS: HEPARIN 5,000 UNITS/ML, 1ML SQ SCH ×3 (05:28→22:01)
[2020-09-23 06:11] LABS: MEAN CORPUSCULAR HEMOGLOBIN 34.6 pg (27.5-34.5); MEAN CORPUSCULAR HGB CONC 33.2 g/dL (33.2-36.2); MEAN PLATELET VOLUME 9.9 fL (7.4-10.4); PLATELET COUNT 186 x10^3/uL (130-400); RED BLOOD COUNT 2.98 x10^6/uL (4.38-5.82); RED CELL DISTRIBUTION WIDTH 16.3 % (9.4-14.8)
[2020-09-23 06:25] LABS: ALBUMIN 2.2 g/dL (3.4-5.0); ANION GAP 17 mmol/L (5-15); CALCIUM 7.1 mg/dL (8.5-10.1); CHLORIDE 101 mmol/L (98-107); CREATININE 8.93 mg/dL (0.7-1.3)
[2020-09-23 06:41] LABS: MD YES
[2020-09-23 06:42] LABS: BAND#(MANUAL) 0.94 x10^3/uL; BANDS%(MANUAL) 8 % (0-7); METAMYELOCYTES# (MANUAL) 0.47 x10^3/uL (0-0); METAMYELOCYTES% (MANUAL) 4 % (0-1); MONOS#(MANUAL) 0.47 x10^3/uL (0.3-2.7); MONOS% (MANUAL) 4 % (2-9); MYELOCYTES# (MANUAL) 0.24 x10^3/uL (0-0); MYELOCYTES% (MANUAL) 2 % (0-0)
[2020-09-23 06:43] LABS: ANISOCYTOSIS 1+; LYMPH#(MANUAL) 0.47 x10^3/uL (1-3.4); LYMPHS% (MANUAL) 4 % (22-44); POLYCHROMASIA 1+; SEGS% (MANUAL) 78 % (42-75)
[2020-09-23 06:44] LABS: <PLATELET ESTIMATE> ADEQUATE; <PLT MORPHOLOGY> NORMAL PLT MORPH
[2020-09-23] MEDS: INSULIN LISPRO 100 UNITS/ML, PEN SQ-INSULIN SCH ×4 (07:51→22:04)
[2020-09-23] MEDS: CHOLECALCIFEROL 5,000u TAB PO SCH (08:07)
[2020-09-23] MEDS: DEXAMETHASONE 4 MG TABLET PO SCH (08:07)
[2020-09-23] MEDS: ZINC SULFATE 220 MG CAPSULE PO SCH (08:07)
[2020-09-23] MEDS: MULTIVITS,STRESS FORMULA 1 TABLET PO SCH (08:07)
[2020-09-23] MEDS: ASCORBIC ACID 500 MG TABLET PO SCH ×2 (08:07→17:01)
[2020-09-23] MEDS: CARVEDILOL 3.125 MG TABLET PO SCH ×2 (08:09→21:46)
[2020-09-23] MEDS: FLUTICASONE/VILANTEROL 100-25MCG/INH INH SCH (08:09)
[2020-09-23] MEDS: ACETAMINOPHEN 325 MG TABLET PO PRN ×3 (08:16→23:49)
[2020-09-23] MEDS: INSULIN GLARGINE 100 UNITS/ML, PEN SQ-INSULIN SCH ×2 (08:17→22:12)
[2020-09-23 08:32] VITALS: BP 138/82
[2020-09-23 12:00] VITALS: BP 120/61
[2020-09-23] MEDS: SEVELAMER CARBONATE 800MG TAB PO SCH ×2 (12:00→17:01)
[2020-09-23] MEDS ORDERED: DARBEPOETIN 100 MCG/ML SQ SCH (13:37)
[2020-09-23] MEDS: CEFTRIAXONE PMX 2GM/50ML 50 ML IVPB SCH (13:51)
[2020-09-23] MEDS ORDERED: HYDROcodone/APAP 5/325 TABLET PO ONE (18:30)
[2020-09-23 19:27] VITALS: BP 98/65
[2020-09-24 00:59] VITALS: BP 151/88
[2020-09-24] MEDS: ACETAMINOPHEN 325 MG TABLET PO PRN ×2 (04:25→12:14)
[2020-09-24] MEDS: HEPARIN 5,000 UNITS/ML, 1ML SQ SCH ×2 (06:03→15:13)
[2020-09-24] MEDS: INSULIN LISPRO 100 UNITS/ML, PEN SQ-INSULIN SCH ×4 (07:00→20:38)
[2020-09-24 07:28] VITALS: BP 129/80
[2020-09-24] MEDS: FLUTICASONE/VILANTEROL 100-25MCG/INH INH SCH (08:20)
[2020-09-24] MEDS: ASCORBIC ACID 500 MG TABLET PO SCH ×2 (08:23→17:04)
[2020-09-24] MEDS: ZINC SULFATE 220 MG CAPSULE PO SCH (08:23)
[2020-09-24] MEDS: MULTIVITS,STRESS FORMULA 1 TABLET PO SCH (08:23)
[2020-09-24] MEDS: DEXAMETHASONE 4 MG TABLET PO SCH (08:24)
[2020-09-24] MEDS: SEVELAMER CARBONATE 800MG TAB PO SCH ×3 (08:29→17:04)
[2020-09-24] MEDS: CHOLECALCIFEROL 5,000u TAB PO SCH (08:29)
[2020-09-24] MEDS: CARVEDILOL 3.125 MG TABLET PO SCH ×2 (08:29→20:37)
[2020-09-24 10:17] LABS: MEAN CORPUSCULAR HEMOGLOBIN 34.7 pg (27.5-34.5); MEAN CORPUSCULAR HGB CONC 33.1 g/dL (33.2-36.2); MEAN PLATELET VOLUME 9.4 fL (7.4-10.4); PLATELET COUNT 191 x10^3/uL (130-400); RED BLOOD COUNT 3.38 x10^6/uL (4.38-5.82); RED CELL DISTRIBUTION WIDTH 17.2 % (9.4-14.8)
[2020-09-24 10:24] LABS: ALBUMIN 2.4 g/dL (3.4-5.0); ANION GAP 16 mmol/L (5-15); CALCIUM 7.3 mg/dL (8.5-10.1); CHLORIDE 97 mmol/L (98-107); CREATININE 6.96 mg/dL (0.7-1.3)
[2020-09-24 10:52] LABS: MD YES
[2020-09-24 10:56] LABS: BAND#(MANUAL) 0.44 x10^3/uL; BANDS%(MANUAL) 3 % (0-7); LYMPH#(MANUAL) 0.15 x10^3/uL (1-3.4); LYMPHS% (MANUAL) 1 % (22-44); MONOS#(MANUAL) 0.44 x10^3/uL (0.3-2.7); MONOS% (MANUAL) 3 % (2-9); MYELOCYTES# (MANUAL) 0.29 x10^3/uL (0-0); MYELOCYTES% (MANUAL) 2 % (0-0)
[2020-09-24 11:09] LABS: PROGRANULOCYTES# (MANUAL) 0.29 x10^3/uL (0-0); PROGRANULOCYTES% (MANUAL) 2 % (0-0); SEGS% (MANUAL) 89 % (42-75)
[2020-09-24 11:11] LABS: ANISOCYTOSIS 1+; POLYCHROMASIA 1+
[2020-09-24 11:12] LABS: <PLATELET ESTIMATE> ADEQUATE; <PLT MORPHOLOGY> NORMAL PLT MORPH
[2020-09-24] MEDS: INSULIN GLARGINE 100 UNITS/ML, PEN SQ-INSULIN SCH ×2 (12:04→20:38)
[2020-09-24 12:15] VITALS: BP 133/82
[2020-09-24] MEDS: CEFTRIAXONE PMX 2GM/50ML 50 ML IVPB SCH (15:13)
[2020-09-24] MEDS ORDERED: HEPARIN 25,000 UNITS/250ML PMX 250 ML IV PRN (17:30)
[2020-09-24] MEDS ORDERED: HEPARIN 5,000 UNITS/ML, 1ML IV PRN (18:00)
[2020-09-24] MEDS ORDERED: HEPARIN 5,000 UNITS/ML, 1ML IV ONE (18:00)
[2020-09-24] MEDS ORDERED: OMNIPAQUE 350 MG/ML, 100ML BOTTLE ONE (18:36)
[2020-09-24 19:14] VITALS: BP 177/99
[2020-09-24] MEDS ORDERED: OXYcodone IR 5MG TABLET ONE (19:36)
[2020-09-24] MEDS: OXYcodone IR 5MG TABLET PO PRN (19:43)
[2020-09-24 20:42] VITALS: BP 156/94
[2020-09-25 00:29] VITALS: BP 127/83
[2020-09-25] MEDS: OXYcodone IR 5MG TABLET PO PRN ×3 (02:26→10:15)
[2020-09-25 06:06] LABS: MEAN CORPUSCULAR HGB CONC 32.8 g/dL (33.2-36.2); MEAN PLATELET VOLUME 9.7 fL (7.4-10.4); PLATELET COUNT 168 x10^3/uL (130-400); RED BLOOD COUNT 2.91 x10^6/uL (4.38-5.82); RED CELL DISTRIBUTION WIDTH 17.7 % (9.4-14.8)
[2020-09-25 06:20] LABS: CHLORIDE 97 mmol/L (98-107)
[2020-09-25 06:25] LABS: ANION GAP 14 mmol/L (5-15); CALCIUM 6.6 mg/dL (8.5-10.1); CREATININE 8.28 mg/dL (0.7-1.3)
[2020-09-25 06:42] LABS: MD YES
[2020-09-25 06:48] LABS: <PLATELET ESTIMATE> ADEQUATE; <PLT MORPHOLOGY> NORMAL PLT MORPH; ANISOCYTOSIS 1+; LYMPH#(MANUAL) 0.33 x10^3/uL (1-3.4); LYMPHS% (MANUAL) 3 % (22-44); METAMYELOCYTES# (MANUAL) 0.56 x10^3/uL (0-0); METAMYELOCYTES% (MANUAL) 5 % (0-1); MONOS#(MANUAL) 0.22 x10^3/uL (0.3-2.7); MONOS% (MANUAL) 2 % (2-9); POLYCHROMASIA 1+; SEG#(MANUAL) 9.99 x10^3/uL (1.8-6.8); SEGS% (MANUAL) 90 % (42-75)
[2020-09-25] MEDS: INSULIN LISPRO 100 UNITS/ML, PEN SQ-INSULIN SCH ×4 (07:00→21:25)
[2020-09-25 07:59] VITALS: BP 145/88
[2020-09-25] MEDS: CARVEDILOL 3.125 MG TABLET PO SCH ×2 (09:12→21:25)
[2020-09-25] MEDS: SEVELAMER CARBONATE 800MG TAB PO SCH ×3 (09:12→17:13)
[2020-09-25] MEDS: MULTIVITS,STRESS FORMULA 1 TABLET PO SCH (09:12)
[2020-09-25] MEDS: ZINC SULFATE 220 MG CAPSULE PO SCH (09:12)
[2020-09-25] MEDS: DEXAMETHASONE 4 MG TABLET PO SCH (09:12)
[2020-09-25] MEDS: ASCORBIC ACID 500 MG TABLET PO SCH ×2 (09:13→17:13)
[2020-09-25] MEDS: CHOLECALCIFEROL 5,000u TAB PO SCH (09:13)
[2020-09-25] MEDS: FLUTICASONE/VILANTEROL 100-25MCG/INH INH SCH (09:15)
[2020-09-25] MEDS ORDERED: DARBEPOETIN 100 MCG/ML SQ SCH (11:33)
[2020-09-25] MEDS ORDERED: HEPARIN 5,000 UNITS/ML, 1ML IV PRN (13:00)
[2020-09-25] MEDS ORDERED: HEPARIN 5,000 UNITS/ML, 1ML IV ONE (13:00)
[2020-09-25 13:26] VITALS: BP 114/71
[2020-09-25] MEDS: INSULIN GLARGINE 100 UNITS/ML, PEN SQ-INSULIN SCH ×2 (14:11→21:26)
[2020-09-25] MEDS: HEPARIN 25,000 UNITS/250ML PMX 250 ML IV PRN (15:07)
[2020-09-25] MEDS: CEFTRIAXONE PMX 2GM/50ML 50 ML IVPB SCH (15:12)
[2020-09-25] MEDS: methylPREDNISolone SOD SUCC 125 MG/2 ML IV SCH ×2 (15:14→21:38)
[2020-09-25 19:50] VITALS: BP 133/74
[2020-09-26 00:12] VITALS: BP 114/76
[2020-09-26] MEDS: methylPREDNISolone SOD SUCC 125 MG/2 ML IV SCH ×3 (05:39→20:46)
[2020-09-26 07:28] VITALS: BP 136/84
[2020-09-26] MEDS: INSULIN LISPRO 100 UNITS/ML, PEN SQ-INSULIN SCH ×4 (08:54→20:47)
[2020-09-26] MEDS: SEVELAMER CARBONATE 800MG TAB PO SCH ×3 (09:00→16:50)
[2020-09-26] MEDS: CARVEDILOL 3.125 MG TABLET PO SCH ×2 (09:01→19:50)
[2020-09-26] MEDS: ZINC SULFATE 220 MG CAPSULE PO SCH (09:01)
[2020-09-26] MEDS: MULTIVITS,STRESS FORMULA 1 TABLET PO SCH (09:01)
[2020-09-26] MEDS: ASCORBIC ACID 500 MG TABLET PO SCH ×2 (09:01→16:50)
[2020-09-26] MEDS: CHOLECALCIFEROL 5,000u TAB PO SCH (09:01)
[2020-09-26] MEDS: FLUTICASONE/VILANTEROL 100-25MCG/INH INH SCH (09:01)
[2020-09-26] MEDS: INSULIN GLARGINE 100 UNITS/ML, PEN SQ-INSULIN SCH ×2 (09:02→20:47)
[2020-09-26 12:39] VITALS: BP 133/79
[2020-09-26] MEDS: KETOROLAC 30 MG/1 ML IVPush PRN ×2 (12:51→20:46)
[2020-09-26] MEDS: CEFTRIAXONE PMX 2GM/50ML 50 ML IVPB SCH (14:19)
[2020-09-26] MEDS: ACETAMINOPHEN 500 MG TABLET PO PRN ×2 (15:42→23:24)
[2020-09-26] MEDS: HEPARIN 25,000 UNITS/250ML PMX 250 ML IV PRN (17:42)
[2020-09-26 19:40] VITALS: BP 92/59
[2020-09-27 01:57] VITALS: BP 92/66
[2020-09-27] MEDS: methylPREDNISolone SOD SUCC 125 MG/2 ML IV SCH (05:01)
[2020-09-27 05:26] LABS: ANION GAP 24 mmol/L (5-15); CALCIUM 6.5 mg/dL (8.5-10.1); CHLORIDE 95 mmol/L (98-107); CREATININE 8.36 mg/dL (0.7-1.3)
[2020-09-27 07:27] VITALS: BP 107/76
[2020-09-27] MEDS: ASCORBIC ACID 500 MG TABLET PO SCH ×2 (08:00→08:10)
[2020-09-27] MEDS: SEVELAMER CARBONATE 800MG TAB PO SCH ×4 (08:00→17:00)
[2020-09-27] MEDS: INSULIN LISPRO 100 UNITS/ML, PEN SQ-INSULIN SCH ×3 (08:10→17:19)
[2020-09-27] MEDS: FLUTICASONE/VILANTEROL 100-25MCG/INH INH SCH (09:00)
[2020-09-27] MEDS: MULTIVITS,STRESS FORMULA 1 TABLET PO SCH (09:00)
[2020-09-27] MEDS: INSULIN GLARGINE 100 UNITS/ML, PEN SQ-INSULIN SCH (09:00)
[2020-09-27] MEDS: CHOLECALCIFEROL 5,000u TAB PO SCH (09:00)
[2020-09-27] MEDS: CARVEDILOL 3.125 MG TABLET PO SCH (09:00)
[2020-09-27] MEDS: ZINC SULFATE 220 MG CAPSULE PO SCH (09:00)
[2020-09-27] MEDS ORDERED: DEXTROSE 50%, 50ML SYRINGE ONE (09:44)
[2020-09-27] MEDS ORDERED: DEXTROSE 50%, 50ML SYRINGE IVPush ONE (10:00)
[2020-09-27] MEDS ORDERED: SODIUM BICARBONATE 8.4% 150 MEQ in DEXTROSE 5% 1,000 ML IV SCH ×2 (10:30→12:30)
[2020-09-27] MEDS ORDERED: FENTANYL PF 100 MCG/2ML IVPush PRN (11:30)
[2020-09-27] MEDS ORDERED: PHARMACY MAY ADJ FOR RENAL FX MC SCH (11:30)
[2020-09-27] MEDS ORDERED: PANTOPRAZOLE 40 MG IV IV SCH (11:30)
[2020-09-27] MEDS ORDERED: PROPOFOL 100 ML IV PRN (11:30)
[2020-09-27] MEDS ORDERED: LIDOCAINE-MPF 1%, 2ML ENDO PRN (11:30)
[2020-09-27] MEDS ORDERED: SODIUM BICARBONATE 1 MEQ/ML, 50ML VIAL ONE (12:28)
[2020-09-27] MEDS ORDERED: SODIUM BICARBONATE 1 MEQ/ML, 50ML VIAL IVPush ONE (13:00)
[2020-09-27] MEDS: PHENYLEPHRINE 50 MG in SODIUM CHLORIDE 0.9% 245 ML IV PRN ×2 (13:21→17:26)
[2020-09-27 14:03] LABS: TRIGLYCERIDES 78 mg/dL (50-200)
[2020-09-27 14:11] LABS: FREE T4 (FREE THYROXINE) 0.68 ng/dL (0.76-1.46); TROPONIN I 0.035 ng/mL (0.000-0.045)
[2020-09-27] MEDS ORDERED: LEVOTHYROXINE 100 MCG INJ IVPush SCH (15:30)
[2020-09-27] MEDS ORDERED: LIOTHYRONINE 5 MCG TABLET PO SCH (15:30)
[2020-09-27] MEDS ORDERED: HYDROCORTISONE 100 MG INJ. IVPush SCH (15:30)
[2020-09-27] MEDS ORDERED: NOREPINEPHRINE 8 MG in SODIUM CHLORIDE 0.9% 242 ML IV PRN (17:30)
[2020-09-27] MEDS ORDERED: BUDESONIDE 0.5 MG/2 ML INHA NPPB SCH (19:00)
[2020-09-27] MEDS ORDERED: EPINEPHRINE SYRINGE 0.1 MG/ML, 10ML ONE ×2 (20:10→20:12)
[2020-09-27] MEDS ORDERED: SODIUM BICARB 8.4%, 50ML SYRINGE ONE (20:12)
== END 2020-09-27 20:30 | disposition expired | DRG 137 ==
LOC: ED 20:27 → EDIP 20:58 → 4EST 23:34 → ICU 09-27 10:16
PROVIDERS: ADMIT Family Medicine; ATTEND Family Medicine
PROC: 5A12012 Performance of Cardiac Output, Single, Manual (ICD-10-PCS; 2020-09-14)
PROC: 5A1D70Z Performance of Urinary Filtration, Intermittent, Less than 6 Hours Per Day (ICD-10-PCS; 2020-09-19)
PROC: 5A0935A Assistance with Respiratory Ventilation, Less than 24 Consecutive Hours, High Flow/Velocity Cannula (ICD-10-PCS; 2020-09-22)
PROC: 5A0935A Assistance with Respiratory Ventilation, Less than 24 Consecutive Hours, High Flow/Velocity Cannula (ICD-10-PCS; 2020-09-23)
PROC: 5A0935A Assistance with Respiratory Ventilation, Less than 24 Consecutive Hours, High Flow/Velocity Cannula (ICD-10-PCS; 2020-09-24)
PROC: 5A0935A Assistance with Respiratory Ventilation, Less than 24 Consecutive Hours, High Flow/Velocity Cannula (ICD-10-PCS; 2020-09-25)
PROC: 5A0935A Assistance with Respiratory Ventilation, Less than 24 Consecutive Hours, High Flow/Velocity Cannula (ICD-10-PCS; 2020-09-26)
PROC: 0BH17EZ Insertion of Endotracheal Airway into Trachea, Via Natural or Artificial Opening (ICD-10-PCS; principal; 2020-09-27)
PROC: 02HV33Z Insertion of Infusion Device into Superior Vena Cava, Percutaneous Approach (ICD-10-PCS; 2020-09-27)
PROC: B548ZZA Ultrasonography of Superior Vena Cava, Guidance (ICD-10-PCS; 2020-09-27)
PROC: 5A1935Z Respiratory Ventilation, Less than 24 Consecutive Hours (ICD-10-PCS; 2020-09-27)
PROC: 5A0935A Assistance with Respiratory Ventilation, Less than 24 Consecutive Hours, High Flow/Velocity Cannula (ICD-10-PCS; 2020-09-27)
DX: U07.1 COVID-19 (principal); J12.89 Other viral pneumonia; G93.41 Metabolic encephalopathy; J96.01 Acute respiratory failure with hypoxia; N18.6 End stage renal disease; I13.2 Hypertensive heart and chronic kidney disease with heart failure and with stage 5 chronic kidney disease, or end stage renal disease; I50.22 Chronic systolic (congestive) heart failure; D63.1 Anemia in chronic kidney disease; E11.22 Type 2 diabetes mellitus with diabetic chronic kidney disease; E11.65 Type 2 diabetes mellitus with hyperglycemia; I46.9 Cardiac arrest, cause unspecified; E43 Unspecified severe protein-calorie malnutrition; E78.00 Pure hypercholesterolemia, unspecified; E78.5 Hyperlipidemia, unspecified; E87.1 Hypo-osmolality and hyponatremia; E87.2 Acidosis; E87.6 Hypokalemia; D53.9 Nutritional anemia, unspecified; I95.3 Hypotension of hemodialysis; K59.00 Constipation, unspecified; R79.89 Other specified abnormal findings of blood chemistry; R19.7 Diarrhea, unspecified; Z79.4 Long term (current) use of insulin; Z83.3 Family history of diabetes mellitus; Z87.891 Personal history of nicotine dependence; Z99.2 Dependence on renal dialysis; Z79.899 Other long term (current) drug therapy; Z68.22 Body mass index [BMI] 22.0-22.9, adult
CPT/HCPCS: 36415; 36600; 70450; 71045; 71275; 74018; 80048; 80053; 80069; 80202; 82533; 82565; 82803; 82947; 82962; 83605; 83615; 83735; 84145; 84439; 84443; 84478; 84481; 84484; 85025; 85379; 85520; 86140; 86705; 86706; 87040; 87046; 87070; 87205; 87252; 87324; 87340; 89055; 90935; 92950; 93005; 93308; 94002; 99285; G0378; J0696; J0881; J1644; J1815; J1885; J3370; J7060; J7070; Q9967; C9113; J1720; J2370; J2930; J7030; J7050; U0003